=== PATIENT | male | born 1950 | race Caucasian/White ===

== ENCOUNTER → 2017-08-16 | Outpatient (REF) | payer MEDICARE, SELFPAY | LOC: LAB 15:19 | PROVIDERS: Visit Provider Student in an Organized Health Care Education/Training Program | DX: E78.00 Pure hypercholesterolemia, unspecified (principal); I10 Essential (primary) hypertension | CPT/HCPCS: 80053; 80061 ==

== ENCOUNTER → 2017-12-21 07:58 | Outpatient (CLI) | payer MEDICARE, SELFPAY ==
--- NOTE | 2017-12-21 | DI.US.S_ITS ---
PROCEDURE: US ABDOMEN LIMITED INDICATIONS: LOWER ABDOMINAL PAIN/RIGHT INGUINAL HERNIA TECHNIQUE: Real-time focused scanning was performed of the inguinal region, with image documentation. COMPARISON: None. FINDINGS: Fat and bowel containing right inguinal hernia is present. IMPRESSION: Right inguinal hernia. Dictated by: Fab PAGE Interpreted: Brennon Patterson MD on 12/21/2017 at 11:06 Approved by: Brennon Patterson M.D. on 12/21/2017 at 13:21
== END ==
PROVIDERS: Visit Provider Student in an Organized Health Care Education/Training Program
DX: K40.90 Unilateral inguinal hernia, without obstruction or gangrene, not specified as recurrent (principal); R10.31 Right lower quadrant pain
CPT/HCPCS: 76705

== ENCOUNTER 2018-01-08 11:57 | Day surgery (SDC) | payer MEDICARE, SELFPAY ==
[2018-01-07 14:37] VITALS: BMI 27.1
[2018-01-08 12:15] VITALS: BP 133/79; PULSE 71; RESP 16; TEMP 37.1; O2SAT 100; BMI 27.0
[2018-01-08] MEDS: LACTATED RINGERS 1,000 ML 100 ML IV (12:31)
--- NOTE | 2018-01-08 13:23 | SUR.OPER ---
Supine on padded OR bed, head on pillow, arms secured on padded arm boards at <90 degrees abduction, legs uncrossed, safety belt at thigh, tape over blanket over lower legs.
[2018-01-08] MEDS: CEFAZOLIN 2 GM/100 ML FROZ.PIGGY IV (13:50)
--- NOTE | 2018-01-08 13:59 | PM.PREOP ---
Pre-operative Note Interval Note Pre-op Check: Yes History & Physical Reviewed by Physician and Yes Exam Performed Changes: No H&P completed within 30 days and has changed as indicated here:: Patient seen today in the preoperative area. He has marked for surgery. History physical examination as documented on the chart dated January 03, 2018 has not changed. We will proceed with open right inguinal hernia repair as planned today.
[2018-01-08] MEDS: LIDOCAINE 1% W/EPI INJ 20 ML INJ (14:51)
[2018-01-08] MEDS: BUPIVACAINE 0.25% (PF) VIAL 30 ML INJ (14:52)
[2018-01-08] MEDS: CEFAZOLIN 1 GM VIAL IV (14:54)
[2018-01-08 15:52] VITALS: BP 119/81; PULSE 84; RESP 14; TEMP 37.2; O2SAT 97
[2018-01-08 15:56] VITALS: BP 127/88; PULSE 93; RESP 12; O2SAT 97
[2018-01-08 16:01] VITALS: BP 125/85; PULSE 88; RESP 14; O2SAT 98
[2018-01-08 16:07] VITALS: BP 126/84; PULSE 86; RESP 14; O2SAT 98
--- NOTE | 2018-01-08 16:09 | PM.OP.1 ---
Operative Date/Time/Diagnoses Date of procedure: 01/08/18 Time of procedure: 16:09 Pre-op diagnosis: Symptomatic reducible right inguinal hernia Post-op diagnosis: other (Symptomatic reducible indirect and direct right inguinal hernia) Procedure & Clinicians Procedure: Open right inguinal hernia repair with mesh Same procedure as scheduled: Yes Indications: 67-year-old male who presented with painful intermittent right inguinal mass. Examination and evaluation were consistent with hernia. Open repair with mesh was recommended. Surgeon: Edmundo Wilson Click Yes if Unassisted: Yes Anesthesia Type: General Operative Notes Findings: 1. Reducible direct and indirect right inguinal hernias 2. Testicles are normal descended position bilaterally at the conclusion of the case 3. Intact spermatic cord but with moderate adhesions between hernia sac and cord structures Closure Type: primary Specimen(s): none sent Implants & Drains: Large Pro Loop polypropylene mesh plug and patch into right inguinal canal Applied: implant(s) (See above for mesh details) Estimated Blood Loss (mL): 10 Blood products transfused: none Procedure in detail: After obtaining informed consent the patient was brought to the operating room placed supine on the table. After satisfactory induction of anesthesia the right inguinal region, abdomen, and genitalia were prepped and draped in usual sterile fashion. SCOAP time out was performed per standard protocol. Transverse skin incision was designed for distance of 4 cm overlying the distal right inguinal canal. Area was infiltrated with a 1 :1 mixture 1% lidocaine with 1 :100,000 epinephrine and 0.5 % plain Marcaine for postoperative analgesia. Skin incision was created with 10 scalpel blade. Bovie was used to achieve hemostasis and carried the dissection through the subcutaneous tissue. Weitlaner retractor was used to provide exposure. Superficial epigastric vessels were clamped and divided with Metzenbaum scissors followed by 2 0 Vicryl ties for hemostasis. External oblique fascia was exposed and divided in the direction of its fibers with 15 scalpel blade followed by Metzenbaum scissors through the external inguinal ring. Edges of the fascia was secured with hemostats and blunt dissection was employed to expose the ileopubic tract, conjoined tendon, and rectus fascia. Blunt dissection with the surgeon's fingers allowed the spermatic cord structures to be liberated from surrounding tissue and elevated into the operative field where they were encircled with a [place] drain. Meticulous blunt dissection using DeBakey forceps was employed to skeletonize the spermatic cord structures. Hernia sacs were identified and liberated from the spermatic cord then reduced as above. Cremasteric fibers were divided with the Bovie during the dissection process. Care was taken to avoid injury to the ilioinguinal nerve throughout the entire case. Hemostasis was verified and the spermatic cord was retracted laterally. Mesh was brought onto the operative field and soaked in Ancef solution. Plug was placed in the internal inguinal ring where it was then secured with interrupted 2 0 Vicryl suture to surrounding connective tissue. Onlay patch was brought onto the operative field and placed over the floor the inguinal canal. Patch was secured with interrupted 0 Tycron sutures circumferentially. Anteriorly the mesh was secured to the conjoined tendon while laterally was secured to the iliopubic tract. Medially mesh was secured to the rectus fascia. Tails of the mesh were brought around the spermatic cord and placed deep to the external oblique fascia where they were secured with a single 0 Tycron suture. Meticulous examination with a Doris clamp revealed ample patency of the mesh around the spermatic cord to prevent strangulation of the structures. Wound was irrigated and noted to be hemostatic. Spermatic cord was replaced in its usual anatomic position and the external oblique fascia was closed over the cord using running 3 0 Vicryl suture. Subcutaneous tissue was reapproximated with interrupted 3 0 Vicryl suture as well. Skin was closed in a running subcuticular fashion with 4 0 Monocryl suture. Dermal adhesive was applied to the skin. Testicles were noted to be in normal descended position bilaterally at the conclusion of the case. Anesthesia was reversed the patient extubated in the operating room. He was taken recovery stable condition. Complications: none Condition: stable Disposition: PACU Plan for aftercare: 1. Discharge to home 2. Follow up in surgery Clinic in 2 weeks
[2018-01-08] MEDS: OXYCODONE/ACETAMINOPHEN 5/325 TABLET 1 TAB PO (16:20)
== END 2018-01-08 17:24 | disposition home or self-care (01) ==
PROVIDERS: Visit Provider Surgery
PROC: (CPT 49505; principal; 2018-01-08 14:45)
DX: K40.90 Unilateral inguinal hernia, without obstruction or gangrene, not specified as recurrent (principal); N50.89 Other specified disorders of the male genital organs; I10 Essential (primary) hypertension; E78.5 Hyperlipidemia, unspecified
CPT/HCPCS: 49505; C1781; J0690; J1100; J2405; J2704; J3010

== ENCOUNTER → 2018-03-18 14:21 | Outpatient (CLI) | payer MEDICARE, SELFPAY ==
--- NOTE | 2018-03-18 | DI.RAD.S_ITS ---
PROCEDURE: XR CHEST 2V INDICATIONS: COUGH TECHNIQUE: 2 views of the chest were acquired. COMPARISON: [facility], , CHEST 1 VIEW, 05/30/2012, 14:56. FINDINGS: Surgical changes and devices: None. Lungs and pleura: No pleural effusions or pneumothorax. Lungs are clear. Mediastinum: Mediastinal contours are normal. Heart size is normal. Bones and chest wall: No suspicious bony abnormalities. Soft tissues appear unremarkable. IMPRESSION: Normal for age, source of current symptoms is not seen. Dictated by: Jarvis Olvera M.D. on 03/18/2018 at 15:03 Approved by: Jarvis Olvera M.D. on 03/18/2018 at 15:04
== END ==
PROVIDERS: Visit Provider Student in an Organized Health Care Education/Training Program
DX: R05 Cough (principal)
CPT/HCPCS: 71046

== ENCOUNTER → 2019-12-12 12:41 | Outpatient (CLI) | payer MEDICARE, SELFPAY ==
--- NOTE | 2019-12-12 | DI.RAD.S_ITS ---
PROCEDURE: XR HIP W PEL IF DONE RT 2V INDICATIONS: UNSPECIFIED OSTEOARTHRITIS,UNSPECIFIED SITE TECHNIQUE: AP pelvis with lateral view(s) of the right hip(s). COMPARISON: None. FINDINGS: Bones: No fractures or dislocations. Pelvic ring appears intact. No suspicious bony lesions. Soft tissues: The visualized bowel gas pattern is normal. No suspicious soft tissue calcifications. IMPRESSION: No identified significant degenerative osteoarthritis at the hips bilaterally. Dictated by: Jarvis Olvera M.D. on 12/12/2019 at 13:58 Approved by: Jarvis Olvera M.D. on 12/12/2019 at 13:58
== END ==
PROVIDERS: PCP Internal Medicine; Referring Provider Internal Medicine; Visit Provider Internal Medicine
DX: M19.90 Unspecified osteoarthritis, unspecified site (principal)
CPT/HCPCS: 73502

== ENCOUNTER → 2020-01-05 08:36 | Outpatient (CLI) | payer MEDICARE, SELFPAY ==
[2020-01-07 17:19] LABS: COVID19 Sendout Not Detected (Not Detect)
== END ==
PROVIDERS: PCP Internal Medicine; Visit Provider Nurse Practitioner
DX: Z11.59 Encounter for screening for other viral diseases (principal)
CPT/HCPCS: 87635

== ENCOUNTER 2020-01-08 10:57 | Day surgery (SDC) | payer MEDICARE, SELFPAY ==
--- NOTE | 2020-01-08 | PATH_ITS ---
[facility] Accession Number: [id number] . 01 Material submitted: . PART A: colon - ASCENDING COLON POLYP PART B: sigmoid colon - SIGMOID POLYP . 02 Diagnosis: A. 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 Negative for high grade dysplasia or malignancy. Please see comment. . B. Sigmoid Polyp: Tubular adenoma. MRV 01/12/2020 1412 Local . 02 Comment: Part A: This lesion may be at higher risk for progression. Assure complete removal and close clinical follow-up, if clinically appropriate. . 02 Electronically signed: . Florina Ruiz MD, Pathologist NPI- [id number] . 01 Gross description: . A. Received in formalin, labeled ascending colon polyp, and consists of a 0.5 x 0.4 x 0.3 cm abad fragment of soft tissue, which is entirely submitted in cassette A1. B. Received in formalin, labeled sigmoid polyp, and consists of a 0.4 x 0.4 x 0.2 cm abad-pink polyp, which is entirely submitted in cassette B1. (EA/[id number]) /MRV 01/09/2020 1327 Local . 02 Pathologist provided ICD-10: Z12.11, K63.5 . 02 CPT . 709779, 335641 Performed at: [address] [facility] [address] [facility] [place], [place], [place] [id number] MD Yang Beltrán MD Phone: [phone] Performed at: 02 [facility] [address] [place], [place] [id number] MD Cher Hopper MD Phone: [phone]
[2020-01-08 11:30] VITALS: BP 134/80; PULSE 81; RESP 17; TEMP 36.2; O2SAT 97; BMI 28.5
[2020-01-08] MEDS: LACTATED RINGERS 1,000 ML 200 ML IV (11:40)
--- NOTE | 2020-01-08 14:00 | PM.HP.1 ---
History of Present Illness History of Present Illness Date Patient Seen: 01/08/20 Time Patient Seen: 14:00 Chief complaint: SDC Narrative: The patient presents for colorectal sreening. The most recent colonoscopy was approximately 12 years ago and normal at that time. No personal or family history of colon cancer. On further history denies any recent gastrointestinal symptoms. No nausea, vomiting, abdominal pain, loss of appetite, unexplained weight loss, change in bowel habits, diarrhea, constipation, melena, hematochezia, or bright red blood per rectum. Patient History Medical History Gout (Chronic) Hyperlipidemia (Acute) Hypertension (Acute) Right inguinal hernia (Acute) Surgical History History of colonoscopy (Acute) Hx of vasectomy (Acute) Family & Social History Family History Father Cancer Social History: household members spouse Tobacco & Substance use: Smoking Status Never smoker alcohol intake current alcohol intake frequency 0-2 drinks per day Substance Use Type marijuana Meds Home Medications and Allergies Home Medications Medication Instructions Recorded Confirmed Type allopurinol 300 mg tablet 300 mg PO DAILY 01/03/18 01/08/20 History atorvastatin 40 mg PO DAILY 08/17/18 01/08/20 History lisinopril-hydrochlorothiazide 0.5 tab PO DAILY 01/08/20 01/08/20 History Allergies Allergy/AdvReac Type Severity Reaction Status Date / Time No Known Drug Allergies Allergy Verified 08/17/18 10:27 Review of Systems Review of Systems Narrative: A 10 point review of systems is negative except as noted in the HPI Exam Vital Signs (past 8 hours): - 01/08/20 11:30 Temperature 97.2 F L Pulse Rate 81 Respiratory Rate 17 Blood Pressure 134/80 Pulse Oximetry 97 Oxygen Delivery Method Room Air Narrative Exam Narrative: General-no acute distress, well nourished HEENT-moist mucous membranes, no scleral icterus Neck-supple, no lymphadenopathy Chest- non labored respirations, clear to auscultation bilaterally Cardiac-regular rate no peripheral edema Abdomen-soft, nontender, non distended Extremities-warm, well perfused Neurological-alert and oriented, no focal deficits Assessment & Plan Assessment and plan (1) Screening for colon cancer: Status: Acute Assessment & Plan narrative: The patient requires colorectal screening and colonoscopy is recommended. Technical details were discussed. Risks, benefits, alternatives explained. Risks including but not limited to myocardial infarction, aspiration, bleeding, pain, missed lesion, incomplete examination, need for further radiographic studies, colonic perforation, and need for major abdominal surgery were discussed. All questions were answered to their satisfaction, and they are in agreement with this plan.
[2020-01-08] MEDS: MIDAZOLAM 5 MG/5 ML VIAL IV (14:12)
[2020-01-08] MEDS: fentaNYL 250 MCG/5 ML INJ IV (14:15)
--- NOTE | 2020-01-08 14:29 | PM.OP.ENDO ---
Operative Date/Time/Diagnoses Date of procedure: 01/08/20 Time of procedure: 14:29 Pre-op diagnosis: Screening colonoscopy Post-op diagnosis: same Procedure & Clinicians Study performed: Colonoscopy Same procedure as scheduled: Yes Indications: 69-year-old male last colonoscopy 12 years ago presents for routine screening. Surgeon: Mahesh Nicole Procedure Notes SCOAP/Timeout: Performed Procedure in detail: Patient placed in left lateral recumbent position. Time out was performed. Procedural sedation was administered with Versed and Fentanyl. Examination began with a thorough inspection of the perianal area there was no evidence of fissures, fistulae, external hemorrhoids or cutaneous malignancy. The colonoscopy scope was then placed into the rectum the the lumen was insufflated with air. The scope was carefully advanced forward. Ultimately the cecum was intubated and confirmed by identification of the ileocecal valve, the appendiceal orifice and the confluence of the taenia. The scope was then slowly withdrawn examining colon thoroughly in all directions. In the rectum the rectal columns were identified and retroflexion of the scope was performed for inspection of the distal rectum and anal canal. The colonoscopy was notable for the followin. Quality of the preparation-fair 2. Less than 1 cm benign-appearing polyp the cecum removed with biopsy forceps hemostasis observed 3. 1 cm benign appearing polyp in the sigmoid colon removed with cold snare hemostasis observed 4. Sigmoid diverticulosis Scope withdrawal time: 11 Sedation minutes: 25 Findings: diverticulosis and polyp Specimen(s): other (Ascending colon, sigmoid colon polyps) Complications: none Impression: Polyps Post-procedure Recommendations: Colonscopy in 5 years Disposition: same day surgery
[2020-01-08] MEDS: ONDANSETRON 4 MG/2 ML INJ IV (14:32)
[2020-01-08 14:37] VITALS: BP 120/78; PULSE 81; RESP 13; TEMP 36.2; O2SAT 97
[2020-01-08 14:41] VITALS: BP 120/85; PULSE 79; RESP 16; TEMP 36.4; O2SAT 96
[2020-01-08 14:45] VITALS: BP 116/82; PULSE 76; RESP 16; O2SAT 97
[2020-01-08 14:49] VITALS: PULSE 85; RESP 12; TEMP 36.4; O2SAT 98
--- NOTE | 2020-01-08 14:54 | SUR.PHASEI ---
Stable PACU stay. To OPD.
[2020-01-08 14:57] VITALS: BP 124/88; PULSE 77; RESP 11; TEMP 36.4; O2SAT 98
--- NOTE | 2020-01-08 15:10 | SUR.PHASEII ---
called, d/c instructions discussed, voiced an understanding.
== END 2020-01-08 15:10 | disposition home or self-care (01) ==
PROVIDERS: PCP Internal Medicine; Referring Provider Surgery; Visit Provider Surgery
PROC: 0DJD8ZZ Inspection of Lower Intestinal Tract, Via Natural or Artificial Opening Endoscopic (ICD-10-PCS; CPT 45378; principal; 2020-01-08 13:00)
DX: Z12.11 Encounter for screening for malignant neoplasm of colon (principal); E78.5 Hyperlipidemia, unspecified; I10 Essential (primary) hypertension; K57.30 Diverticulosis of large intestine without perforation or abscess without bleeding; D12.5 Benign neoplasm of sigmoid colon; D12.2 Benign neoplasm of ascending colon
CPT/HCPCS: 45385; 45380; 99152; 99153; J2250; J2405; J3010

== ENCOUNTER → 2021-02-04 09:16 | Outpatient (CLI) | payer MEDICARE, SELFPAY ==
[2021-02-04 11:15] LABS: COVID19 -Nasal RAPID Negative (Negative)
== END ==
PROVIDERS: PCP Internal Medicine; Referring Provider Surgery; Visit Provider Surgery
DX: Z01.812 Encounter for preprocedural laboratory examination (principal); Z20.822 Contact with and (suspected) exposure to COVID-19
CPT/HCPCS: 87635; C9803

== ENCOUNTER 2021-02-07 07:32 | Day surgery (SDC) | payer MEDICARE, SELFPAY ==
[2021-02-07] VITALS (9 sets, daily range): BP systolic 116–145; BP diastolic 77–89; PULSE 74–81; RESP 14–18; TEMP 36.4–37; O2SAT 95–98; BMI 27.7
--- NOTE | 2021-02-07 | PATH_ITS ---
[facility] Accession Number: [id number] . 01 Material submitted: . PART A: colon - ASCENDING COLON POLYP PART B: rectum - RECTAL POLYP . 02 Diagnosis: A. Ascending Colon Polyp, Biopsy: Sessile serrated adenoma. . B. Rectal Polyp, Biopsy: Hyperplastic polyp. [facility] 02/10/2021 1641 Local . 02 Electronically signed: . Ramsey Sierra MD, PhD, Pathologist NPI- [id number] . 01 Gross description: . Part A: ASCENDING COLON POLYP: Received in formalin are 4 fragment(s) of abad, soft tissue measuring 0.4 x 0.3 x 0.2 cm to 0.2 x 0.2 x 0.1 cm submitted entirely in 1 cassette(s) Part B: RECTAL POLYP: Received in formalin is 1 fragment(s) of abad, soft tissue measuring 0.3 x 0.2 x 0.2 cm submitted entirely in 1 cassette(s) /DEXTER 02/08/2021 0543 Local . 02 Pathologist provided ICD-10: D12.2, K62.1 . 02 CPT . 099960, 994353 Performed at: 01 [facility] [address], [place], [place] [id number] MD Yagn Beltrán MD Phone: [phone] Performed at: 02 [facility] [address] [place], [place] [id number] MD Cher Hopper MD Phone: [phone]
--- NOTE | 2021-02-07 08:35 | PM.HP.1 ---
History of Present Illness History of Present Illness Date Patient Seen: 02/07/21 Time Patient Seen: 08:35 Chief complaint: [facility] [place] Narrative: The patient presents for colorectal sreening. Colonoscopy 1 year ago demonstrated a sessile polyp in the ascending colon with low grade dysplsia no evidence of malignancy. No personal or family history of colon cancer. On further history denies any recent gastrointestinal symptoms. No nausea, vomiting, abdominal pain, loss of appetite, unexplained weight loss, change in bowel habits, diarrhea, constipation, melena, hematochezia, or bright red blood per rectum. Patient History Medical History (Updated 02/07/21 @ 08:37 by Mahesh Nicole MD) Gout Hyperlipidemia Hypertension Right inguinal hernia Surgical History History of colonoscopy Hx of vasectomy Family & Social History Family History Father Cancer Social History: household members spouse Tobacco & Substance use: Smoking Status Never smoker alcohol intake current alcohol intake frequency 0-2 drinks per day Substance Use Type marijuana Meds Home Medications and Allergies Home Medications Medication Instructions Recorded Confirmed Type allopurinol 300 mg tablet 300 mg PO DAILY 01/03/18 01/08/20 History atorvastatin 40 mg PO DAILY 08/17/18 01/08/20 History lisinopril 20 0.5 tab PO DAILY 01/08/20 01/08/20 History mg-hydrochlorothiazide 12.5 mg tablet Allergies Allergy/AdvReac Type Severity Reaction Status Date / Time No Known Drug Allergies Allergy Verified 08/17/18 10:27 Exam Vital Signs (past 8 hours): - 02/07/21 07:53 Temperature 98.6 F Pulse Rate 81 Respiratory Rate 18 Blood Pressure 145/87 H Pulse Oximetry 98 Oxygen Delivery Method Room Air Narrative Exam Narrative: Constitutional-he is oriented to person, place and time. No apparent distress Cardiovascular- regular rate, no peripheral edema Pulmonary-unlabored respiratory effort, no audible wheezing Abdominal-soft, non-tender, non-distended Musculoskeletal-no cyanosis or clubbing Neurological-nonfocal, normal strength throughout, normal gait. Skin-warm and dry Assessment & Plan Assessment and plan (1) Sessile colonic polyp: Status: Acute Assessment & Plan narrative: The patient requires colorectal screening and colonoscopy is recommended secondary to history of sessile serrated polyp with low-grade dysplasia. Technical details were discussed. Risks, benefits, alternatives explained. Risks including but not limited to myocardial infarction, aspiration, bleeding, pain, missed lesion, incomplete examination, need for further radiographic studies, colonic perforation, and need for major abdominal surgery were discussed. All questions were answered to their satisfaction, and they are in agreement with this plan. Time Spent With Patient Critical Care time: I spent a total of [] minutes of critical care time on this patient's care today; this time is exclusive of procedural time.
[2021-02-07] MEDS: MIDAZOLAM 5 MG/5 ML VIAL IV (08:39)
[2021-02-07] MEDS: fentaNYL 250 MCG/5 ML INJ IV (08:39)
--- NOTE | 2021-02-07 09:06 | PM.OP.COLON ---
Operative Date/Time/Diagnoses Date of procedure: 02/07/21 Time of procedure: 09:06 Pre-op diagnosis: history of sessile polyp Post-op diagnosis: same Procedure & Clinicians Study performed: colonoscopy Same procedure as scheduled: Yes Indications: hx sessile serated polyp Surgeon: Mahesh Nicole Procedure Notes Procedure in detail: Medications: Conscious sedation using 8mg IV midazolam and 250mcg IV of fentanyl The history and physical was performed/updated and the patient is ASA class is 2. The procedure was discussed in detail with the patient. Potential risks complications including infection, bleeding, missed diagnosis, perforation, need for surgery, and were explained. Their questions were answered and informed consent was obtained. Patient was brought to the procedure room and placed standard monitoring equipment. The patient's vital signs were monitored continuously throughout the entire procedure. Prior to starting time-out was performed. The patient was placed in the left lateral recumbent position. Procedural sedation was administered. Examination began with a thorough inspection of the perianal area there was no evidence of fissures, fistulae, external hemorrhoids or cutaneous malignancy. The colonoscopy scope was then placed into the anal canal and was advanced to the cecum, which was identified by the ileocecal valve, the appendiceal orifice and the confluence of the taenia. The scope was then slowly withdrawn examining colon thoroughly in all directions, irrigating it of any residual stool. FINDINGS 1. 5 mm polyp distal rectal removed with biopsy forceps 2. Ascending colon, residual polyp appearing material less than 1 cm removed with biopsy forceps. The site of the polyp was marked with tattoo distal to the lesion. Ink was injected into the submucosal space for a total of 3 mL. 3. Sigmoid diverticulosis The patient tolerated the procedure well. They will be discharged once criteria are met. The prep was of good/excellent quality. The withdrawl time was 8 minutes. The sedation time was 26 minutes. Specimen(s): other (Ascending colon, rectal) Complications: none Impression: Colonic polyps Post-procedure Plan for aftercare: Timing of next colonoscopy will depend on pathology Disposition: same day surgery
== END 2021-02-07 10:00 | disposition home or self-care (01) ==
PROVIDERS: Referring Provider Surgery; Visit Provider Surgery
PROC: 0DJD8ZZ Inspection of Lower Intestinal Tract, Via Natural or Artificial Opening Endoscopic (ICD-10-PCS; CPT 45378; principal; 2021-02-07 08:30)
DX: Z12.11 Encounter for screening for malignant neoplasm of colon (principal); Z86.010 Personal history of colon polyps; E78.5 Hyperlipidemia, unspecified; I10 Essential (primary) hypertension; K57.30 Diverticulosis of large intestine without perforation or abscess without bleeding; D12.2 Benign neoplasm of ascending colon; K62.1 Rectal polyp
CPT/HCPCS: 45381; 45380; 99152; 99153; J2250; J3010